=== PATIENT | female | born 1975 | race Caucasian/White ===

== ENCOUNTER 2017-09-09 20:21 | Inpatient (IN) | payer MEDICAID, OTHER ==
[~2017-09-09] VITALS: Ht 152.4 cm; Wt 55.1 kg
[2017-09-09 20:00] VITALS: BP 111/69; PULSE 86; RESP 20; TEMP 97.2; O2SAT 99
[~2017-09-09 20:21] MED LIST: ACETAMINOPHEN 325 MG TAB PO PRN; BISACODYL 10 MG SUPP RECTAL PRN; CIPR500T2 PO; CLIN300C5 PO; LACTULOSE SYRUP 20 GM/30 ML CUP PO PRN; LEVO.075 PO; LEXA10TA PO; LISI10TA3 PO; MAGNESIUM HYDROXIDE SUSP 30 ML CUP PO PRN; METR-1 PO; NALOXONE HCL 0.4 MG/ML AMP IV PUSH PRN; ROBA750T3 PO; SENNOSIDES 8.6 MG TAB PO PRN; SODIUM CHLORIDE 0.9% FLUSH 10 ML FLUSH IV FLUSH PRN; SYNT75TA PO; [UNRECOGNIZED DRUG - CODE] PO
[2017-09-09 20:25] VITALS: BP 111/69; PULSE 86; RESP 20; TEMP 97.2; O2SAT 99
[2017-09-09] MEDS ORDERED: PIPERACIL-TAZO 3.375 GM PREMIX 50 ML IV SCH (21:00)
[2017-09-09] MEDS ORDERED: Vancomycin Consult Pharmacy 1 EA OTHER SCH (21:00)
[2017-09-09] MEDS ORDERED: ACETAMINOPHEN 325 MG TAB PO PRN (22:00)
[2017-09-09] MEDS: SODIUM CHLORIDE 0.9% FLUSH 10 ML FLUSH IV FLUSH SCH (22:17)
[2017-09-09] MEDS: ACETAMINOPHEN/HYDROcodone 325 MG/5 MG TAB PO PRN (22:17)
[2017-09-09] MEDS: DOCUSATE SODIUM 50 MG/SENNA 8.6 MG TAB PO SCH (22:18)
[2017-09-09] MEDS: ONDANSETRON HCL 4 MG/2 ML VIAL IVP PRN (22:26)
[2017-09-09] MEDS ORDERED: diphenhydrAMINE HCL 50 MG/ML VIAL IV PUSH ONE (23:30)
[2017-09-09] MEDS ORDERED: FAMOTIDINE 20 MG TAB PO ONE (23:30)
[2017-09-09] MEDS: MORPHINE SULFATE 2 MG/ML INJ IV PUSH PRN (23:35)
[2017-09-10] VITALS: BP 126/80; PULSE 81; RESP 20; TEMP 96.9; O2SAT 98
[2017-09-10] MEDS: diphenhydrAMINE HCL 50 MG/ML VIAL IV PUSH PRN ×3 (02:30→22:52)
[2017-09-10] MEDS: ACETAMINOPHEN/HYDROcodone 325 MG/5 MG TAB PO PRN ×4 (02:30→21:11)
[2017-09-10] MEDS: MORPHINE SULFATE 2 MG/ML INJ IV PUSH PRN ×5 (04:30→22:55)
[2017-09-10 05:45] LABS: AUTOMATED NEUTROPHIL # 2.5 TH/MM3 (1.8-7.7); BASOPHIL % 0.4 % (0.0-2.0); EOSINOPHIL # 0.2 TH/MM3 (0-0.4); EOSINOPHIL % 2.5 % (0.0-4.0); HEMATOCRIT 40.8 % (35.0-46.0); HEMOGLOBIN 13.6 GM/DL (11.6-15.3); LYMPH % 47.4 % (9.0-44.0); LYMPHOCYTE # 3.1 TH/MM3 (1.0-4.8); MEAN CELL VOLUME 91.4 FL (80.0-100.0); MEAN CORPUSCULAR HEMOGLOBIN 30.5 PG (27.0-34.0); MEAN CORPUSCULAR HGB CONC 33.3 % (32.0-36.0); MEAN PLATELET VOLUME 7.2 FL (7.0-11.0); MONO % 11.7 % (0.0-8.0); MONOCYTE # 0.8 TH/MM3 (0-0.9); PLATELET COUNT 321 TH/MM3 (150-450); RED BLOOD COUNT 4.46 MIL/MM3 (4.00-5.30); RED CELL DISTRIBUTION WIDTH 13.6 % (11.6-17.2); WHITE BLOOD COUNT 6.6 TH/MM3 (4.0-11.0)
[2017-09-10 05:47] LABS: CHLORIDE 104 MEQ/L (98-107); SODIUM (NA) 139 MEQ/L (136-145)
[2017-09-10 05:51] LABS: BICARBONATE 27.7 MEQ/L (21.0-32.0); BLOOD UREA NITROGEN 22 MG/DL (7-18); CALCIUM 8.5 MG/DL (8.5-10.1); GLUCOSE,RANDOM 91 MG/DL (74-106)
[2017-09-10 05:54] LABS: ALT (GPT) 16 U/L (10-53); AST (GOT) 12 U/L (15-37); CREATININE 0.82 MG/DL (0.50-1.00); GLOMERULAR FILTRATION RATE 76 ML/MIN (>89)
[2017-09-10 05:56] LABS: TOTAL BILIRUBIN ADULT 0.3 MG/DL (0.2-1.0); TOTAL PROTEIN 6.7 GM/DL (6.4-8.2)
[2017-09-10 05:57] LABS: ALKALINE PHOSPHATASE 64 U/L (45-117)
[2017-09-10 08:00] VITALS: BP 109/73; PULSE 79; RESP 16; TEMP 97.6; O2SAT 99
[2017-09-10] MEDS: DOCUSATE SODIUM 50 MG/SENNA 8.6 MG TAB PO SCH ×2 (08:57→21:10)
[2017-09-10] MEDS: FAMOTIDINE 20 MG TAB PO SCH ×2 (08:57→21:11)
[2017-09-10] MEDS: SODIUM CHLORIDE 0.9% FLUSH 10 ML FLUSH IV FLUSH SCH ×2 (08:59→21:11)
[2017-09-10] MEDS: VANCOMYCIN INJ 1,000 MG in SODIUM CHLOR 0.9% 250 ML INJ 250 ML IV SCH (08:59)
[2017-09-10] MEDS: ONDANSETRON HCL 4 MG/2 ML VIAL IVP PRN ×2 (09:01→15:24)
[2017-09-10 12:00] VITALS: BP 112/79; PULSE 87; RESP 18; TEMP 97.8; O2SAT 97
--- NOTE | 2017-09-10 12:09 | HHI.HP ---
HPI Service [facility] Hospitalists Primary Care Physician Non-Staff Admission Diagnosis Diagnoses: Chief Complaint: Left arm infection Travel History International Travel<30 Days: No Contact w/Intl Traveler <30 Da: No Traveled to Known Affected Are: No History of Present Illness This patient is a 42-year-old female with a week of left arm infection. She did have something which she thought was a large boil and she sought treatment at [facility]. She was given Bactrim. She then returned to the hospital for evaluation due to worsening changes and was given Keflex and clindamycin after an I&D. Yesterday she went to the emergency room at [place]. Cultures were positive for MRSA and the patient was sent to the hospital for further evaluation and worsening ulceration and pain. She has since been started on vancomycin and Zosyn. She had an apparent allergic reaction to the Zosyn overnight and this was discontinued. She is no fevers or chills. Upper extremity does show a quarter-sized ulcerated area with quite a bit of sloughing but minimal surrounding erythema. She has some pain and has been recommended for observation due to these skin changes. Review of Systems Constitutional: DENIES: Diaphoretic episodes, Fatigue, Fever, Weight gain, Weight loss, Chills, Dizziness, Change in appetite, Night Sweats Endocrine: DENIES: Abnorml menstrual pattern, Heat/cold intolerance, Polydipsia , Polyuria, Polyphagia Eyes: DENIES: Blurred vision, Diplopia, Eye inflammation, Eye pain, Vision loss , Photosensitivity, Double Vision Ears, nose, mouth, throat: DENIES: Tinnitus, Hearing loss, Vertigo, Nasal discharge, Oral lesions, Throat pain, Hoarseness, Ear Pain, Running Nose, Epistaxis, Sinus Pain, Toothache, Odynophagia Respiratory: DENIES: Apneas, Cough, Snoring, Wheezing, Hemoptysis, Sputum production, Shortness of breath Cardiovascular: DENIES: Chest pain, Palpitations, Syncope, Dyspnea on Exertion , PND, Lower Extremity Edema, Orthopnea, Claudication Gastrointestinal: DENIES: Abdominal pain, Black stools, Bloody stools, Constipation, Diarrhea, Nausea, Vomiting, Difficulty Swallowing, Anorexia Genitourinary: DENIES: Abnormal vaginal bleeding, Dysmenorrhea, Dyspareunia, Sexual dysfunction, Urinary frequency, Urinary incontinence, Urgency, Hematuria , Dysuria, Nocturia, Vaginal discharge Musculoskeletal: DENIES: Joint pain, Muscle aches, Stiffness, Joint Swelling, Back pain, Neck pain Integumentary: DENIES: Abnormal pigmentation, Pruritus, Rash, Nail changes, Breast masses, Breast skin changes, Nipple discharge Hematologic/lymphatic: DENIES: Bruising, Lymphadenopathy Immunologic/allergic: DENIES: Eczema, Urticaria Neurologic: DENIES: Abnormal gait, Headache, Localized weakness, Paresthesias, Seizures, Speech Problems, Tremor, Poor Balance Psychiatric: DENIES: Anxiety, Confusion, Mood changes, Depression, Hallucinations, Agitation, Suicidal Ideation, Homicidal Ideation, Delusions Except as stated in HPI: all other systems reviewed are Neg Past Family Social History Past Medical History Hypertension Hypothyroidism Past Surgical History Bilateral tubal ligation Laparoscopic surgery on her uterus Reported Medications Reviewed in the EMR, Rales medications for the last 2 weeks Allergies: Coded Allergies: celecoxib (Unverified Allergy, Severe, throat swelling, 09/09/17) pregabalin (Unverified Allergy, Severe, throat swelling, 09/09/17) piperacillin (Verified Allergy, Intermediate, Hives, 09/09/17) tazobactam (Verified Allergy, Intermediate, Hives, 09/09/17) Active Ordered Medications Reviewed in the EMR Family History Mother has hypertension Social History Patient smokes a pack per day for 25 years, sober from alcohol for 2 weeks, admits illicit drug use without IV injection (smokes/snorts heroin) Physical Exam Vital Signs Vital Signs Date Time Temp Pulse Resp B/P (MAP) Pulse Ox O2 Delivery O2 Flow Rate FiO2 09/10/17 09:58 18 09/10/17 08:00 97.6 79 16 109/73 (85) 99 09/10/17 00:00 96.9 81 20 126/80 (95) 98 09/09/17 20:25 97.2 86 20 111/69 (83) 99 Physical Exam GENERAL: This is a well-nourished, well-developed patient, in no apparent distress. SKIN: Left arm quarter size superficial ulceration with improved surrounding erythema but quite a bit of sloughing in the shallow ulceration, otherwise No rashes, ecchymoses or lesions. Cool and dry. HEAD: Atraumatic. Normocephalic. No temporal or scalp tenderness. EYES: Pupils equal round and reactive. Extraocular motions intact. No scleral icterus. No injection or drainage. ENT: Nose without bleeding, purulent drainage or septal hematoma. Throat without erythema, tonsillar hypertrophy or exudate. Uvula midline. Airway patent. NECK: Trachea midline. No JVD or lymphadenopathy. Supple, nontender, no meningeal signs. CARDIOVASCULAR: Regular rate and rhythm without murmurs, gallops, or rubs. RESPIRATORY: Clear to auscultation. Breath sounds equal bilaterally. No wheezes , rales, or rhonchi. GASTROINTESTINAL: Abdomen soft, non-tender, nondistended. No hepato-splenomegaly , or palpable masses. No guarding. MUSCULOSKELETAL: Extremities without clubbing, cyanosis, or edema. No joint tenderness, effusion, or edema noted. No calf tenderness. Negative Homans sign bilaterally. NEUROLOGICAL: Awake and alert. Cranial nerves II through XII intact. Motor and sensory grossly within normal limits. Five out of 5 muscle strength in all muscle groups. Normal speech. Laboratory Laboratory Tests Test 09/10/17 04:25 White Blood Count 6.6 Red Blood Count 4.46 Hemoglobin 13.6 Hematocrit 40.8 Mean Corpuscular Volume 91.4 Mean Corpuscular Hemoglobin 30.5 Mean Corpuscular Hemoglobin Concent 33.3 Red Cell Distribution Width 13.6 Platelet Count 321 Mean Platelet Volume 7.2 Neutrophils (%) (Auto) 38.0 Lymphocytes (%) (Auto) 47.4 Monocytes (%) (Auto) 11.7 Eosinophils (%) (Auto) 2.5 Basophils (%) (Auto) 0.4 Neutrophils # (Auto) 2.5 Lymphocytes # (Auto) 3.1 Monocytes # (Auto) 0.8 Eosinophils # (Auto) 0.2 Basophils # (Auto) 0.0 CBC Comment DIFF FINAL Differential Comment Blood Urea Nitrogen 22 Creatinine 0.82 Random Glucose 91 Total Protein 6.7 Albumin 3.0 Calcium Level 8.5 Alkaline Phosphatase 64 Aspartate Amino Transf (AST/SGOT) 12 Alanine Aminotransferase (ALT/SGPT) 16 Total Bilirubin 0.3 Sodium Level 139 Potassium Level 4.1 Chloride Level 104 Carbon Dioxide Level 27.7 Anion Gap 7 Estimat Glomerular Filtration Rate 76 Result Diagram: 09/10/1742409/10/17424 Imaging 09/09 CT upper arm shows soft tissue changes without abscess or osteomyelitis Caprini VTE Risk Assessment Caprini VTE Risk Assessment: No/Low Risk (score <= 1) Caprini Risk Assessment Model Point Value = 1 Point Value = 2 Point Value = 3 Point Value = 5 Age 41-60 Minor surgery BMI > 25 kg/m2 Swollen legs Varicose veins or History of unexplained or recurrent spontaneous Oral contraceptives or hormone replacement Sepsis (< 1 month) Serious lung disease, including pneumonia (< 1 month) Abnormal pulmonary function Acute myocardial infarction Congestive heart failure (< 1 month) History of inflammatory bowel disease Medical patient at bed rest Age 61-74 Arthroscopic surgery Major open surgery (> 45 min) Laparoscopic surgery (> 45 min) Malignancy Confined to bed (> 72 hours) Immobilizing plaster cast Central venous access Age >= 75 History of VTE Family history of VTE Factor V Leiden Prothrombin [id number] Lupus anticoagulant Anticardiolipin antibodies Elevated serum homocysteine Heparin-induced thrombocytopenia Other congenital or acquired thrombophilia Stroke (< 1 month) Elective arthroplasty Hip, pelvis, or leg fracture Acute spinal cord injury (< 1 month) Prophylaxis Regimen Total Risk Factor Score Risk Level Prophylaxis Regimen 0-1 Low Early ambulation 2 Moderate Order ONE of the following: *Sequential Compression Device (SCD) *Heparin 5000 units SQ BID 3-4 Higher Order ONE of the following medications: *Heparin 5000 units SQ TID *Enoxaparin/Lovenox 40 mg SQ daily (WT < 150 kg, CrCl > 30 mL/min) *Enoxaparin/Lovenox 30 mg SQ daily (WT < 150 kg, CrCl > 10-29 mL/min) *Enoxaparin/Lovenox 30 mg SQ BID (WT < 150 kg, CrCl > 30 mL/min) AND/OR *Sequential Compression Device (SCD) 5 or more Highest Order ONE of the following medications: *Heparin 5000 units SQ TID (Preferred with Epidurals) *Enoxaparin/Lovenox 40 mg SQ daily (WT < 150 kg, CrCl > 30 mL/min) *Enoxaparin/Lovenox 30 mg SQ daily (WT < 150 kg, CrCl > 10-29 mL/min) *Enoxaparin/Lovenox 30 mg SQ BID (WT < 150 kg, CrCl > 30 mL/min) AND *Sequential Compression Device (SCD) Assessment and Plan Problem List: (1) Cellulitis ICD Code: L03.90 - Cellulitis, unspecified Plan: left forearm No evidence of abscess with imaging Continue vancomycin Patient did not tolerate Pipracil and overnight Likely discharge in a.m. with Bactrim/rifampin Continue wound care Assessment and Plan Likely discharge in a.m. on oral antibiotics Code Status Full code Discussed Condition With Patient, Morelia Wheeler MD Sep 10, 2017 12:09
[2017-09-10] MEDS: LISINOPRIL 10 MG TAB PO SCH (13:25)
[2017-09-10] MEDS: LEVOTHYROXINE SODIUM 75 MCG TAB PO SCH (14:00)
[2017-09-10 16:00] VITALS: BP 109/72; PULSE 87; RESP 16; TEMP 98.4; O2SAT 97
[2017-09-10 20:00] VITALS: BP 104/69; PULSE 90; RESP 16; TEMP 98.3; O2SAT 97
--- NOTE | 2017-09-10 20:19 | MB ---
cc: KAYLA RAM,ALVIN Room MD DATE OF CONSULTATION: 09/10/2017 REQUESTING PHYSICIAN: Dr. Ram. REASON FOR CONSULTATION: MRSA failed treatment. HISTORY OF PRESENT ILLNESS This is a 42 year-old white female who has had a wound of her left forearm. The patient states this began as an insect bite. She was seen at [facility] on September 07. She was given clindamycin and was asked to come back for a check of the wound in 48 hours. Prior to that she was seen at [facility] and she was put on Bactrim. A culture was taken in the emergency department on 09/07 and it came back showing MRSA which is resistant to clindamycin. She was sent to the emergency department here for admission and she was admitted to the hospital and started on IV antibiotics. She was put on vancomycin in addition to piperacillin / tazobactam. She developed hives and the piperacillin / tazobactam was discontinued. This consultation is requested for management. A CT scan of the upper extremity was performed yesterday and shows no definite fracture or dislocation. Soft tissue swelling was noted without pocket of abscess or signs of osteomyelitis. The patient states that she has pain in the left forearm. She states that this infection began as a bug bite. She states that she gets similar type skin lesions which would come and go. The patient reportedly uses illegal drugs but no IV injectables. PAST MEDICAL HISTORY: 1. Hypertension. 2. Hypothyroidism. 3. Bilateral tubal ligation. ALLERGIES PIPERACILLIN / TAZOBACTAM. CELECOXIB PREGABALIN MEDICATIONS 1. Vancomycin. 2. Prinivil. 3. Synthroid. 4. Pepcid. 5. Benadryl. SOCIAL HISTORY Positive tobacco one-pack a day. No alcohol. Positive illicit drugs. FAMILY HISTORY Noncontributory. REVIEW OF SYSTEMS Significant for pain in the left arm, otherwise negative on 10 point review. PHYSICAL EXAMINATION This is a well-developed female in no acute distress. She is awake and alert and oriented. Vitals: Temperature 97.8, BP 112/79, respirations 18, heart rate 87. HEENT: Head is atraumatic. Extraocular movements grossly intact, pupils reactive to light. No icterus. Oropharynx moist mucosa without lesions. Neck: Supple without adenopathy. Lungs: Clear. Heart: Regular rate and rhythm without murmurs, rubs or gallops. Abdomen: Bowel sounds present, soft, no tenderness appreciated. Rectal: Not performed. Extremities: No clubbing or cyanosis or edema. The left forearm has an ulcerated lesion which has coagulated blood within the ulcer base and some serous purulent drainage. The surrounding area around the ulcer has no erythema. Neuro: Nonfocal. Psych: The patient is calm and cooperative. IMPRESSION: Wound infection of the left forearm due to MRSA. No evidence of abscess. The MRSA was sensitive to Bactrim but resistant to clindamycin. I think the wound looks fairly clean and should respond to continuation of treatment with p.o. Bactrim and use Mupirocin ointment as well to the wound. She can be switched to p.o. Bactrim two double-strength twice a day for another 7 days and Bactroban ointment to the wound twice a day for 10 days. The patient can be discharged from an ID standpoint. She can follow up with outpatient ID if the wound does not sufficiently resolve. Alvin Veliz MD FD/ALETHA /5:54 PM /6:34 PM
[2017-09-11] VITALS: BP 110/63; PULSE 74; RESP 16; TEMP 96.7; O2SAT 94
[2017-09-11] MEDS: ACETAMINOPHEN/HYDROcodone 325 MG/5 MG TAB PO PRN ×2 (01:34→06:15)
[2017-09-11] MEDS: LEVOTHYROXINE SODIUM 75 MCG TAB PO SCH (04:43)
[2017-09-11] MEDS: VANCOMYCIN INJ 1,000 MG in SODIUM CHLOR 0.9% 250 ML INJ 250 ML IV SCH (04:44)
[2017-09-11] MEDS: MORPHINE SULFATE 2 MG/ML INJ IV PUSH PRN ×2 (04:49→09:29)
[2017-09-11] MEDS: ONDANSETRON HCL 4 MG/2 ML VIAL IVP PRN (04:49)
[2017-09-11] MEDS: diphenhydrAMINE HCL 50 MG/ML VIAL IV PUSH PRN (06:19)
[2017-09-11 08:00] VITALS: BP 98/66; PULSE 78; RESP 16; TEMP 96.6; O2SAT 97
[2017-09-11] MEDS: DOCUSATE SODIUM 50 MG/SENNA 8.6 MG TAB PO SCH (09:00)
[2017-09-11] MEDS: FAMOTIDINE 20 MG TAB PO SCH (09:07)
[2017-09-11] MEDS: SODIUM CHLORIDE 0.9% FLUSH 10 ML FLUSH IV FLUSH SCH (09:07)
[2017-09-11] MEDS: LISINOPRIL 10 MG TAB PO SCH (09:07)
[2017-09-11] MEDS ORDERED: BACT800T5 PO (10:31)
[2017-09-11] MEDS ORDERED: LISI10TA3 PO (10:31)
[2017-09-11] MEDS ORDERED: LEVO.075 PO (10:31)
[2017-09-11] MEDS ORDERED: BACI500O9 TOPICAL (10:31)
--- NOTE | 2017-09-11 10:31 | HHI.DCPOC ---
Discharge Care Plan Diagnosis: (1) Cellulitis (2) Hypothyroidism Goals to Promote Your Health * To prevent worsening of your condition and complications * To maintain your health at the optimal level Directions to Meet Your Goals Take your medications as prescribed Follow your dietary instruction Follow activity as directed Keep your appointments as scheduled Take your immunizations and boosters as scheduled If your symptoms worsen call your PCP, if no PCP go to Urgent Care Center or Emergency Room Smoking is Dangerous to Your Health. Avoid second hand smoke Call the 24-hour hour crisis hotline for domestic abuse at Morelia Ram MD Sep 11, 2017 10:31
--- NOTE | 2017-09-11 10:36 | HHI.DS ---
Discharge Summary Admission Date Sep 10, 2017 at 16:39 Discharge Date: Sep 11, 2017 Admitting Diagnosis (1) Cellulitis ICD Code: L03.90 - Cellulitis, unspecified Procedures None Brief History - From Admission This patient is a 42-year-old female with a week of left arm infection. She did have something which she thought was a large boil and she sought treatment at [facility]. She was given Bactrim. She then returned to the hospital for evaluation due to worsening changes and was given Keflex and clindamycin after an I&D. Yesterday she went to the emergency room at [place]. Cultures were positive for MRSA and the patient was sent to the hospital for further evaluation and worsening ulceration and pain. She has since been started on vancomycin and Zosyn. She had an apparent allergic reaction to the Zosyn overnight and this was discontinued. She is no fevers or chills. Upper extremity does show a quarter-sized ulcerated area with quite a bit of sloughing but minimal surrounding erythema. She has some pain and has been recommended for observation due to these skin changes. CBC/BMP: 09/10/17 0425 09/10/17 0425 Significant Findings Laboratory Tests Test 09/10/17 04:25 09/10/17 15:35 Lymphocytes (%) (Auto) 47.4 % (9.0-44.0) Monocytes (%) (Auto) 11.7 % (0.0-8.0) Blood Urea Nitrogen 22 MG/DL (7-18) Albumin 3.0 GM/DL (3.4-5.0) Aspartate Amino Transf (AST/SGOT) 12 U/L (15-37) Estimat Glomerular Filtration Rate 76 ML/MIN (>89) Imaging CT done in emergency room in [place], no abscess PE at Discharge GENERAL: This is a well-nourished, well-developed patient, in no apparent distress. CARDIOVASCULAR: Regular rate and rhythm without murmurs, gallops, or rubs. RESPIRATORY: Clear to auscultation. Breath sounds equal bilaterally. No wheezes , rales, or rhonchi. GASTROINTESTINAL: Abdomen soft, non-tender, nondistended. Normal active bowel sounds MUSCULOSKELETAL: left arm shallow ulcer. Extremities without clubbing, cyanosis , or edema. NEURO: Alert & Oriented x4 to person, place, time, situation. Moves all ext x4 Pt update on day of discharge Patient seen and evaluated today in follow-up for left arm cellulitis which is resolving on antibiotics. Itching is improved. ID notes appreciated. Discharge the patient and nursing team Hospital Course patient did well with antibiotics initially although she had a reaction to the penicillin that was given. This reaction improved with antihistamines and with steroids. Patient was seen by ID due to failed outpatient therapy. He was discharged to follow-up with her primary care doctor after being prescribed oral antibiotics and topical bacitracin Pt Condition on Discharge: Good Discharge Disposition: Discharge Home Discharge Time: <= 30 minutes Discharge Instructions DIET: Follow Instructions for: As Tolerated, No Restrictions Activities you can perform: Regular-No Restrictions Follow up Referrals: PCP Follow-up - 1 Week New Medications: Bacitracin Topical (Bacitracin Topical) 500 Unit/Gm Oint 1 APPLIC TOPICAL BID for Infection, #20 GM 0 Refills Sulfamethoxazole-Trimethoprim (Bactrim DS) 800-160 Mg Tab 1 TAB PO BID for Infection, #14 TAB 0 Refills Continued Medications: Levothyroxine (Synthroid) 75 Mcg Tab 75 MCG PO DAILY for Thyroid, #30 TAB 0 Refills (This prescription has been renewed) Lisinopril (Lisinopril) 10 Mg Tab 10 MG PO DAILY for Blood Pressure Management, #30 TAB 0 Refills (This prescription has been renewed) Discontinued Medications: Clindamycin (Clindamycin) 300 Mg Cap 600 MG PO Q8H for Infection, #30 CAP 0 Refills Morelia Ram MD Sep 11, 2017 10:36
[2017-09-11] MEDS ORDERED: TYLETAB34 PO (12:17)
[2017-09-11] MEDS ORDERED: PROM25TA10 PO (12:17)
[2017-09-11 13:05] LABS: HEPATITIS A AB IGM NEGATIVE (NEGATIVE); HEPATITIS B CORE AB IGM NEGATIVE (NEGATIVE); HEPATITIS B SURFACE ANTIGEN NEGATIVE (NEGATIVE); HEPATITIS C AB IgG NEGATIVE (NEGATIVE)
[2017-09-11] MEDS ORDERED: VANCOMYCIN TROUGH ONE (21:45)
== END 2017-09-11 13:09 | disposition home or self-care (01) | DRG 603 ==
LOC: PHEDDLT 20:21 → PH3B 20:22 → OBSVTOIN 09-10 16:39
PROVIDERS: ADMIT Hospitalist; ATTEND Hospitalist
DX: L03.114 Cellulitis of left upper limb (principal); I10 Essential (primary) hypertension; B95.62 Methicillin resistant Staphylococcus aureus infection as the cause of diseases classified elsewhere; W57.XXXA Bitten or stung by nonvenomous insect and other nonvenomous arthropods, initial encounter; E03.9 Hypothyroidism, unspecified; F17.210 Nicotine dependence, cigarettes, uncomplicated; T36.0X5A Adverse effect of penicillins, initial encounter
CPT/HCPCS: 73201; 80053; 80074; 84702; 85025; 86703; 87040; 96365; 96366; 96375; 96376; G0378; J1200; J2270; J2405; J2543; J3370; J7050; Q9967

== ENCOUNTER 2018-01-13 02:00 | Observation (INO) | payer MEDICAID, OTHER ==
[2018-01-13] MEDS ORDERED: SODIUM CHLOR 0.9% 1000 ML INJ 1,000 ML IV (02:44)
[2018-01-13] MEDS ORDERED: ACETAMINOPHEN 325 MG TAB PO (02:45)
[2018-01-13] MEDS ORDERED: NALOXONE HCL 0.4 MG/ML AMP IV PUSH (02:45)
[2018-01-13] MEDS ORDERED: SODIUM CHLORIDE 0.9% FLUSH 10 ML FLUSH IV FLUSH ×2 (02:45→09:00)
[2018-01-13] MEDS ORDERED: ONDANSETRON HCL 4 MG/2 ML VIAL IVP (02:45)
== END 2018-01-13 03:08 | disposition left against medical advice (07) ==
LOC: NEDDLT 02:00 → NEPHCDU 02:10
DX: R07.89 Other chest pain (principal); I10 Essential (primary) hypertension; E03.9 Hypothyroidism, unspecified; F19.129 Other psychoactive substance abuse with intoxication, unspecified; F10.129 Alcohol abuse with intoxication, unspecified
CPT/HCPCS: 71046; 80048; 80307; 81001; 82550; 82552; 83735; 83880; 84484; 84702; 85025; 85379; 85610; 85730; 87086; 93005; 96361; 96374; 96375; 99285-25